=== PATIENT | male | born 2000 | race Caucasian/White ===

== ENCOUNTER 2020-08-14 22:59 | Emergency (ER) | payer MEDICAID ==
[~2020-08-14] VITALS: Ht 172.7 cm; Wt 59.0 kg
[~2020-08-14 22:59] MED LIST: ETOMIDATE 2MG/ML 10ML VIAL IV ONE; SODIUM CHLORIDE 0.9% 10ML VIAL ONE; VECURONIUM BROMIDE 10 MG/VIAL IV ONE
[2020-08-14] MEDS ORDERED: SODIUM CHLORIDE 0.9% 1,000 ML IV ONE (23:30)
[2020-08-14 23:54] LABS: CLARITY URINE CLEAR (CLEAR); COLOR URINE YELLOW (YELLOW); KETONES URINE NEGATIVE (NEGATIVE); LEUKOCYTE ESTERASE URINE NEGATIVE (NEGATIVE); NITRITE URINE NEGATIVE (NEGATIVE); OCCULT BLOOD URINE NEGATIVE (NEGATIVE); PROTEIN URINE 2+ (NEGATIVE); SPECIFIC GRAVITY URINE 1.017 (1.005-1.030); UROBILINOGEN URINE 0.2 E.U./dL (0.2-1.0)
[2020-08-15] MEDS ORDERED: CEFTRIAXONE 1 G PREMIX 50 ML IV ONE
[2020-08-15] MEDS ORDERED: DOXYCYCLINE HYCLATE 100 MG/VIAL IV ONE
[2020-08-15] MEDS: PROPOFOL 10MG/ML 100ML 100 ML IV SCH ×2 (00:06→05:51)
[2020-08-15 00:10] LABS: *AMPHETAMINES SCREEN URINE NEGATIVE (NEGATIVE); *BENZODIAZEPINES SCREEN URINE NEGATIVE (NEGATIVE); *COCAINE SCREEN URINE NEGATIVE (NEGATIVE); CANNABINOID URINE SCREEN PRESUMTIVE POSITIVE (NEGATIVE); METHADONE URINE SCREEN NEGATIVE (NEGATIVE); OPIATES URINE SCREEN NEGATIVE (NEGATIVE); PHENCYCLIDINE URINE SCREEN NEGATIVE (NEGATIVE)
[2020-08-15 00:12] LABS: *BARBITURATES SCREEN URINE NEGATIVE (NEGATIVE)
[2020-08-15 00:29] LABS: BASOPHILS % 0.2 % (0.0-2.0); EOSINOPHILS % 0.3 % (0.0-5.0); HEMATOCRIT. 39.8 % (42.0-52.0); HEMOGLOBIN. 13.1 g/dL (14.0-18.0); LYMPHOCYTES % 19.1 % (20.0-50.0); MEAN CORPUSCULAR VOLUME 94.2 fL (80.0-94.0); MEAN PLATELET VOLUME 11.5 fl (7.4-10.4); NEUTROPHILS % 69.4 % (40.0-76.0); PLATELET 301 x1000/uL (130-400); RED BLOOD CELL COUNT 4.23 mill/uL (4.7-6.1); RED CELL DISTRIBUTION WIDTH 15.6 % (11.6-14.6)
[2020-08-15 00:35] LABS: CHLORIDE 104 mEq/L (98-107)
[2020-08-15 00:39] LABS: ETHANOL BLOOD < 10 mg/dL
[2020-08-15 00:43] LABS: CREATINE KINASE 107 IU/L (39-308)
[2020-08-15] MEDS: DOXYCYCLINE 100 MG in SODIUM CHLORIDE 0.9% 100 ML IV SCH ×2 (01:00→01:08)
[2020-08-15] MEDS ORDERED: LACTATED RINGERS 1,000 ML IV SCH (01:15)
[2020-08-15] MEDS ORDERED: LABETALOL HCL 20MG/4ML CARPUJECT IV ONE (01:30)
[2020-08-15 03:51] LABS: BG BASE EXCESS 3.7 mmol/L (-2.0-2.0); BG CARBOXYHEMOGLOBIN 0.4 % (0.5-1.5); BG DEOXYHEMOGLOBIN 0.4 % (0.0-5.0); BG FRACTION INSPIRED OXYGEN 100; BG HCO3 ACT 37.4 mmol/L (22.0-26.0); BG METHEMOGLOBIN 0.5 % (0.0-1.5); BG OXYGEN SATURATION 99.6 % (92.0-98.5); BG OXYHEMOGLOBIN 98.7 % (94.0-97.0); BG PCO2 126.2 mmHg (35.0-45.0); BG PO2 477.8 mmHg (75.0-100.0); BG SAMPLE SITE LEFT RADIAL; BG TOTAL HEMOGLOBIN 12.9 g/dL (12.0-18.0); BG VENT MODE VENT - AC
[2020-08-15] MEDS ORDERED: FENTANYL CITRATE/PF 1,000 MCG in SODIUM CHLORIDE 0.9% 80 ML IV STA (04:36)
[2020-08-15] MEDS ORDERED: FENTANYL CITRATE/PF 50MCG/ML 2ML VIAL IV ONE (04:45)
[2020-08-15] MEDS ORDERED: FENTANYL CITRATE/PF 2,500 MCG in SODIUM CHLORIDE 0.9% 200 ML IV PRN (05:00)
[2020-08-15 08:29] VITALS: BP 114/67
== END 2020-08-15 09:25 | disposition hospice, inpatient (51) ==
LOC: ER 22:59
DX: J96.00 Acute respiratory failure, unspecified whether with hypoxia or hypercapnia (principal); J93.9 Pneumothorax, unspecified; G93.49 Other encephalopathy; E87.2 Acidosis; E84.9 Cystic fibrosis, unspecified; K21.9 Gastro-esophageal reflux disease without esophagitis; F12.10 Cannabis abuse, uncomplicated; Z20.822 Contact with and (suspected) exposure to COVID-19; Z93.1 Gastrostomy status; Z94.2 Lung transplant status
CPT/HCPCS: 31500; 36415; 36600; 70450; 71045; 71250; 80053; 80305; 80307; 80320; 80329; 81003; 82140; 82375; 82550; 82805; 82962; 83605; 83880; 84443; 84484; 85025; 87040; 87426; 93005; 94002; 96361; 96365; 96366; 96368; 96376; 99291; J0696; J2704; J3010; J3490; J7050; Z7610; G0480